=== PATIENT | male | born 1965 | race Two or more races ===

== ENCOUNTER 2024-10-16 09:26 | Inpatient (IN) | payer MEDICAID, OTHER ==
[~2024-10-16] VITALS: Ht 170.2 cm; Wt 69.9 kg
[2024-10-16 09:32] VITALS: O2SAT 97
[2024-10-16 10:26] LABS: HEMATOCRIT. 44.6 % (42.0-52.0); HEMOGLOBIN. 14.7 g/dL (14.0-18.0); MEAN PLATELET VOLUME 7.7 fl (7.4-10.4); PLATELET 449 x1000/uL (130-400); RED BLOOD CELL COUNT 5.13 mill/uL (4.7-6.1); RED CELL DISTRIBUTION WIDTH 14.4 % (11.6-14.6)
[2024-10-16 10:41] LABS: CREATININE 0.9 mg/dL (0.6-1.3); UREA NITROGEN BLOOD 20 mg/dL (9-23)
[2024-10-16 10:50] LABS: LACTIC ACID 3.8 mmol/L (0.4-2.0)
[2024-10-16 10:52] LABS: BAND% 3.0 % (1.0-6.0); LYMPHOCYTES % MANUAL 17.0 % (20.0-50.0); MONOCYTES % MANUAL 8.0 % (2.0-8.0); NEUTROPHILS % MANUAL 72.0 % (45.0-75.0); PLATELET ESTIMATE NORMAL
[2024-10-16] MEDS: SODIUM CHLORIDE 0.9% (SEPSIS BOLUS) IV ONE (11:04)
[2024-10-16] MEDS: PIPERACILLIN/TAZO 3.375G/50ML 50 ML IV SCH (12:11)
[2024-10-16] MEDS: VANCOMYCIN 500 MG in DEXT 5% WATER 100 ML IV SCH (14:49)
[2024-10-16] MEDS ORDERED: NORT10CA PO (15:23)
[2024-10-16] MEDS ORDERED: AMLO5TAB88 PO (15:23)
[2024-10-16] MEDS ORDERED: ATOR10TA69 PO (15:23)
[2024-10-16] MEDS ORDERED: ACETAMINOPHEN 325MG TABLET PO PRN (15:30)
[2024-10-16] MEDS ORDERED: ONDANSETRON HCL 4MG/2ML INJ IV PRN (15:30)
[2024-10-16] MEDS ORDERED: DEXTROSE 50% WATER 50ML SYRINGE IV PRN (15:30)
[2024-10-16 16:00] VITALS: BP 143/93; PULSE 92; RESP 18; TEMP 36.5; O2SAT 98
[2024-10-16 16:13] VITALS: BP 143/93; PULSE 92; RESP 18; TEMP 36.5
[2024-10-16] MEDS: BLOOD SUGAR DIAGNOSTIC STRIP TEST SCH (17:10)
[2024-10-16] MEDS: INSULIN LISPRO 100 UNITS/ML SUBCUT SCH (18:01)
[2024-10-16 19:14] LABS: *AMPHETAMINES SCREEN URINE NEGATIVE (NEGATIVE); *BARBITURATES SCREEN URINE NEGATIVE (NEGATIVE); *BENZODIAZEPINES SCREEN URINE NEGATIVE (NEGATIVE); *COCAINE SCREEN URINE NEGATIVE (NEGATIVE); METHADONE URINE SCREEN NEGATIVE (NEGATIVE)
[2024-10-16 19:15] LABS: CANNABINOID URINE SCREEN NEGATIVE (NEGATIVE); ECSTASY MDMA SCREEN URINE NEGATIVE (NEGATIVE); OPIATES URINE SCREEN NEGATIVE (NEGATIVE); PHENCYCLIDINE URINE SCREEN NEGATIVE (NEGATIVE)
[2024-10-16 19:20] LABS: COLOR URINE YELLOW (YELLOW)
[2024-10-16 19:21] LABS: CLARITY URINE CLEAR (CLEAR); GLUCOSE URINE 3+ (NEGATIVE); KETONES URINE NEGATIVE (NEGATIVE); LEUKOCYTE ESTERASE URINE NEGATIVE (NEGATIVE); NITRITE URINE NEGATIVE (NEGATIVE); OCCULT BLOOD URINE NEGATIVE (NEGATIVE); PH URINE 6.5 (4.5-8.0); PROTEIN URINE NEGATIVE (NEGATIVE); SPECIFIC GRAVITY URINE 1.034 (1.005-1.030); UROBILINOGEN URINE 1.0 E.U./dL (0.2-1.0)
[2024-10-16] MEDS ORDERED: VANCOMYCIN 1G PREMIX 200 ML IV SCH (20:00)
[2024-10-16] MEDS ORDERED: NORTRIPTYLINE HCL 10MG CAPSULE PO SCH (21:00)
[2024-10-16] MEDS ORDERED: MEDICATION NOT ON FORMULARY EA (Nortriptyline Hcl 1 CAP) PO SCH (21:00)
[2024-10-16] MEDS ORDERED: ATORVASTATIN CALCIUM 10MG TABLET PO SCH (21:00)
[2024-10-17] MEDS ORDERED: VANCOMYCIN 1G PREMIX 200 ML IV SCH (06:00)
[2024-10-17] MEDS ORDERED: AMLODIPINE 5MG TABLET PO SCH (09:00)
[2024-10-17] MEDS ORDERED: ENOXAPARIN 40MG/0.4ML SYR SUBCUT SCH (09:00)
[2024-10-17] MEDS ORDERED: PANTOPRAZOLE SODIUM 40 MG/VIAL IV SCH (09:00)
== END 2024-10-16 19:30 | disposition left against medical advice (07) | DRG 720 ==
LOC: ER 09:26 → EDBEDREQ 09:47 → 8WST 14:16 → EDBEDREQTM 14:19 → EDBEDREQ 14:19 → 8WST 16:11
PROVIDERS: ADMIT Internal Medicine; ATTEND Internal Medicine
DX: A41.9 Sepsis, unspecified organism (principal); E87.20 Acidosis, unspecified; E87.1 Hypo-osmolality and hyponatremia; L02.413 Cutaneous abscess of right upper limb; E11.65 Type 2 diabetes mellitus with hyperglycemia; L03.113 Cellulitis of right upper limb; R65.20 Severe sepsis without septic shock; M79.632 Pain in left forearm; Z53.29 Procedure and treatment not carried out because of patient's decision for other reasons; Z79.84 Long term (current) use of oral hypoglycemic drugs; Z79.899 Other long term (current) drug therapy
CPT/HCPCS: 36415; 73200; 80048; 80305; 81003; 82962; 83036; 83605; 84145; 85025; 93005; 99285; A4606; J1815; J2543; J3370; J7030; J7060